=== PATIENT | male | born 1950 | race Caucasian/White ===

== ENCOUNTER 2021-04-15 13:30 | Emergency (ER) | payer BC, MEDICARE ==
[~2021-04-15] VITALS: Ht 175.3 cm; Wt 72.6 kg
--- NOTE | 2021-04-15 13:50 | NUR ---
AT BEDSIDE WITH FOLLET CATH PREPARED, PT REFUSES FOLLEY CATH PLACEMENT. PT SAYS THAT HE HAD ONE BEFORE AND WAS VERY UNCOMFORTABLE, HE FEELS BETTER THAT IT IS OUT, PT ALSO MENTIONED THAT HE WAS ABLE TO URINTE IN THE MORNING. NOTIFIED.
[2021-04-15] MEDS ORDERED: LIDOCAINE 2% (UROJET) 10 ML JELLY MM ONE ×2 (14:00→14:08)
--- NOTE | 2021-04-15 14:00 | NUR ---
BEDSIDE BLADDER SCAN SHOWED 250 ML URINE. NOTIFIED
[2021-04-15] MEDS ORDERED: LORAZEPAM 0.5 MG TABLET PO ONE (14:15)
[2021-04-15] MEDS ORDERED: LORAZEPAM 1 MG TABLET ONE (14:32)
[2021-04-15 14:40] LABS: HEMATOCRIT 43.7 % (36.7-47.1); MEAN CORPUSCULAR HEMOGLOBIN 31.4 uug (23.8-33.4); MEAN CORPUSCULAR VOLUME 91.2 fL (73.0-96.2); PLATELET COUNT (AUTO) 161 K/uL (152-348)
[2021-04-15 14:53] LABS: BILIRUBIN,DIRECT 0.2 mg/dL (0.0-0.2); BILIRUBIN,TOTAL 0.9 mg/dL (0.2-1.0); CREATININE 1.1 mg/dL (0.6-1.3); POTASSIUM 3.4 mmol/L (3.5-5.1); TOTAL PROTEIN, SERUM 7.1 g/dL (6.4-8.2)
--- NOTE | 2021-04-15 15:15 | NUR ---
Attempted to insert F/C, pt refused. Pt's caregiver is insisting on having the F/C placed, when I attempted to take the pt's pants down he became upset and agitated. notified.
[2021-04-15] MEDS ORDERED: ACET-73 PO (15:20)
--- NOTE | 2021-04-15 16:19 | NUR ---
pt voided 100ml, sample sent to lab
[2021-04-15 16:24] LABS: *BILIRUBIN,URIN NEGATIVE (NEGATIVE); *BLOOD, URINE 2+ (NEGATIVE); *CLARITY,URINE SLIGHTLY CLOUDY (CLEAR); *COLOR,URINE YELLOW (YELLOW); *KETONES,URINE TRACE (NEGATIVE); *UROBILINOGEN,URINE 0.2 E.U./dl (NORMAL); LEUKOCYTE ESTERASE ,URINE 1+ (NEGATIVE); NITRITE, URINE POSITIVE (NEGATIVE); PH,URINE 5.5 (5.0-8.0); UGLUCOSE NEGATIVE (NEGATIVE)
[2021-04-15 16:42] LABS: BACTERIA,URINE MANY /HPF (NONE SEEN); MUCUS,URINE MANY /LPF (0-FEW); RBC,URINE 20-50 /HPF (0-3); SQUAMOUS EPITHELIAL CELL,UR FEW /HPF (NONE SEEN); URINE AMORPHOUS URATE MANY /HPF; WBC,URINE 80-100 /HPF (0-3)
--- NOTE | 2021-04-15 17:00 | NUR ---
DR. PARRA, PT'S CALLED AND TALKED TO DR. GAMBOA.
--- NOTE | 2021-04-15 17:12 | NUR ---
PT'S DAUGHTER CALLED AND TALKED TO DR. GAMBOA.
--- NOTE | 2021-04-15 17:12 | NUR ---
Cyn negro in [facility] - 04/15/21 at 1716 by BETITO PT'S CALLED AND TALKED TO DR. GAMBOA.
[2021-04-15] MEDS ORDERED: CEFTRIAXONE 1 G VIAL IM ONE (17:15)
[2021-04-15] MEDS ORDERED: CIPR-262 PO (17:18)
--- NOTE | 2021-04-15 17:30 | NUR ---
Patient discharged to home in stable condition. Written and verbal after care instructions given. Patient verbalizes understanding of instructions. Stressed follow up or return to ER for worsening s/s.PT WALKS IN STEADY GAIT. PT ACCOMPANIED BY CARE GIVERS.
[2021-04-15] MEDS ORDERED: CEFTRIAXONE 1 G VIAL ONE (17:31)
[2021-04-15] MEDS ORDERED: LIDOCAINE HCL 1% 20 ML VIAL ONE (17:31)
[2021-04-15 17:34] VITALS: BP 129/74
== END 2021-04-15 17:34 ==
LOC: ER 13:30
DX: N39.0 Urinary tract infection, site not specified (principal); N40.0 Benign prostatic hyperplasia without lower urinary tract symptoms; K57.30 Diverticulosis of large intestine without perforation or abscess without bleeding; N32.89 Other specified disorders of bladder; N28.1 Cyst of kidney, acquired; F03.90 Unspecified dementia, unspecified severity, without behavioral disturbance, psychotic disturbance, mood disturbance, and anxiety; E78.5 Hyperlipidemia, unspecified; K59.00 Constipation, unspecified; R91.8 Other nonspecific abnormal finding of lung field
CPT/HCPCS: 36415; 71045; 74176; 80048; 80076; 81001; 83605; 84484; 85025; 87040 ×2; 87086; 96372; 99284; J0696; J3490; 70030-TC; A4663